=== PATIENT | female | born 1980 | race Two or more races ===

== ENCOUNTER 2016-05-27 01:21 | Emergency (ER) | payer OTHER ==
[2016-05-27] MEDS ORDERED: OXYCODONE-ACETAMINOPHEN 5-325 MG TABLET PO ONE (02:28)
[2016-05-27] MEDS ORDERED: PROMETHAZINE HCL 25 MG TABLET PO ONE (02:28)
[2016-05-27 02:50] LABS: ABSOLUTE BASOPHILS # (AUTO) 0.1 10^3/uL (0.0-0.2); ABSOLUTE EOSINOPHILS # (AUTO) 0.1 10^3/uL (0.0-0.6); ABSOLUTE LYMPHOCYTES (AUTO) 2.7 10^3/uL (0.5-4.7); ABSOLUTE MONOCYTES (AUTO) 0.5 10^3/uL (0.1-1.4); BASOPHILS % (AUTO) 0.6 % (0-2); EOSINOPHILS % (AUTO) 1.6 % (0-6); HEMATOCRIT 36.1 % (36.0-47.0); HEMOGLOBIN 11.7 g/dL (12.0-15.5); LYMPHOCYTES % (AUTO) 28.5 % (13-45); MEAN CORPUSCULAR HEMOGLOBIN 28.9 pg (27.0-33.4); MEAN CORPUSCULAR HGB CONC 32.5 g/dL (32.0-36.0); MEAN CORPUSCULAR VOLUME 89 fl (80-97); MONOCYTES % (AUTO) 5.8 % (3-13); RED BLOOD COUNT 4.05 10^6/uL (3.72-5.28); SEGMENTED NEUTROPHILS % (AUTO) 63.5 % (42-78); WHITE BLOOD COUNT 9.5 10^3/uL (4.0-10.5)
--- NOTE | 2016-05-27 02:50 | ER Document Report ---
ED GI/ - General Chief Complaint: Abdominal Pain Stated Complaint: ABDOMINAL PAIN Time seen by provider: 02:45 Notes: Patient is a 35-year-old female that comes emergency department for chief complaint of sudden sharp stabbing lower abdominal/pelvic pain that began this evening prior to arrival. Symptoms happened just after patient had a normal bowel movement. Patient states she feels very nauseated, she denies vomiting, fever, vaginal discharge, flank pain. at bedside. Patient has Mirena IUD. Patient also notes that recently she has been having frequent vaginal bleeding, none noted tonight. When asked patient does state she has had ovarian cysts previously. Patient also has history of fibromyalgia, TRAVEL OUTSIDE OF THE [place] IN LAST 30 DAYS: No - Related Data Allergies/Adverse Reactions: diphenhydramine HCl [From Benadryl] Adverse Reaction (Intermediate, Verified 02:51) "FEELING THAT COULD NOT MOVE" Past Medical History - General Information source: Patient - Social History Smoking Status: Never Smoker Frequency of alcohol use: None Drug Abuse: None Lives with: Family Family History: Reviewed & Not Pertinent Patient has suicidal ideation: No Patient has homicidal ideation: No - Past Medical History Cardiac Medical History: Denies: Hx Coronary Artery Disease, Hx Heart Attack, Hx Hypertension Pulmonary Medical History: Denies: Hx Asthma, Hx Bronchitis, Hx COPD, Hx Pneumonia Neurological Medical History: Denies: Hx Cerebrovascular Accident, Hx Seizures Renal/ Medical History: Denies: Hx Peritoneal Dialysis GI Medical History: Reports: Hx Gastroesophageal Reflux Disease, Hx Ulcer Musculoskeltal Medical History: Reports Hx Arthritis Psychiatric Medical History: Reports: Hx Anxiety, Hx Depression Past Surgical History: Reports: Hx Cholecystectomy, Hx Tonsillectomy. Denies: Hx Hysterectomy - Immunizations Immunizations up to date: Yes Hx Diphtheria, Pertussis, Tetanus Vaccination: Yes Review of Systems - Review of Systems Constitutional: No symptoms reported EENT: No symptoms reported Cardiovascular: No symptoms reported Respiratory: No symptoms reported Gastrointestinal: See HPI Genitourinary: See HPI Female Genitourinary: See HPI Musculoskeletal: No symptoms reported Skin: No symptoms reported Hematologic/Lymphatic: No symptoms reported Neurological/Psychological: No symptoms reported Physical Exam - Vital signs Vitals: Temp Pulse Resp BP Pulse Ox 98.0 F 105 H 20 122/74 98 05/27/16 01:28 05/27/16 01:28 05/27/16 01:28 05/27/16 01:28 05/27/16 01:28 Interpretation: Normal - General General appearance: Alert, Anxious In distress: Mild - Patient appears to be somewhat uncomfortable but is not into severe distress - HEENT Head: Normocephalic, Atraumatic Eyes: Normal Pupils: PERRL - Respiratory Respiratory status: No respiratory distress Chest status: Nontender Breath sounds: Normal Chest palpation: Normal - Cardiovascular Rhythm: Regular Heart sounds: Normal auscultation Murmur: No - Abdominal Inspection: Normal Distension: No distension Bowel sounds: Normal Tenderness: Tender - Tender in the Gen. lower abdomen in the suprapubic, left, and right lower abdomen. No guarding. Organomegaly: No organomegaly - Back Back: Normal, Nontender - Extremities General upper extremity: Normal inspection, Nontender, Normal color, Normal ROM , Normal temperature General lower extremity: Normal inspection, Nontender, Normal color, Normal ROM , Normal temperature, Normal weight bearing. 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 Ultrasound shows some pelvic fluid, left ovary is not visualized, uterus with irregular appearance. Based on patient's very sharp pain which has gradually subsided and patient's ultrasound with history of cysts, I suspect she ruptured an ovarian cyst. Patient symptom free after Percocet and Phenergan. Patient provided with a copy of her ultrasound, [place] with [facility], discussed return precautions including fever, returned severe pain, dizziness, etc. Patient states understanding and agreement. Hypotension at discharge, patient had just awakened, after this was performed she aroused easily, got up, normal skin coloration, well-appearing, alert, requesting to leave. - Vital Signs Vital signs: Temp Pulse Resp BP Pulse Ox 98.5 F 88 16 95/46 L 98 05/27/16 06:52 05/27/16 06:52 05/27/16 06:52 05/27/16 06:52 05/27/16 01:28 - Laboratory Result Diagrams: 05/27/16 02:38 05/27/16 02:38 Laboratory results interpreted by me: 05/27/16 02:38 Hgb 11.7 L Discharge - Discharge Clinical Impression: Lower abdominal pain Condition: Stable Disposition: HOME, SELF-CARE Additional Instructions: Your symptoms, examination, and workup suggests that you most likely popped an ovarian cyst. Please follow-up with [facility] with your ultrasound report and imaging for further evaluation and treatment. Return to the emergency department for any concerning symptoms. Prescriptions: Hydrocodone/Acetaminophen [[place] 5-325 Tablet] 1 - 2 each PO Q4H PRN #10 tablet PRN Reason: Forms: Treatment of Relative/Child
[2016-05-27 03:01] LABS: ALANINE AMINOTRANSFERASE 26 U/L (9-52); ALBUMIN 3.6 g/dL (3.5-5.0); ALKALINE PHOSPHATASE 71 U/L (38-126); ANION GAP 9 (5-19); ASPARTATE AMINO TRANSFERASE 18 U/L (14-36); BILIRUBIN,TOTAL 0.3 mg/dL (0.2-1.3); BLOOD UREA NITROGEN 13 mg/dL (7-20); CALCIUM 9.3 mg/dL (8.4-10.2); CARBON DIOXIDE 25 mmol/L (22-30); CHLORIDE 103 mmol/L (98-107); CREATININE RESULT 0.68 mg/dL (0.52-1.25); GLUCOSE 95 mg/dL (75-110); POTASSIUM 4.4 mmol/L (3.6-5.0); SODIUM 137.3 mmol/L (137-145); TOTAL PROTEIN 6.5 g/dL (6.3-8.2)
[2016-05-27] MEDS ORDERED: NORMAL SALINE 1000 ML 500 ML IV ONE (04:50)
[2016-05-27] MEDS ORDERED: HYDROCODONE/ACETAMINOPHEN 5-325 MG 6 TAB/DSPK PO PRN (05:10)
[2016-05-27 06:22] LABS: APPEARANCE,URINE CLEAR; BILIRUBIN,URINE NEGATIVE (NEGATIVE); GLUCOSE, URINE NEGATIVE (NEGATIVE); KETONES,URINE NEGATIVE (NEGATIVE); LEUKOCYTE ESTERASE,URINE NEGATIVE (NEGATIVE); NITRITE,URINE NEGATIVE (NEGATIVE); PROTEIN,URINE NEGATIVE (NEGATIVE); URINE SPECIFIC GRAVITY 1.023; UROBILINOGEN,URINE NEGATIVE mg/dL (<2.0)
[2016-05-27 06:54] VITALS: BP 95/46
== END 2016-05-27 06:54 | disposition home or self-care (01) ==
LOC: ER 01:21
DX: R10.2 Pelvic and perineal pain (principal); R11.0 Nausea; Z97.5 Presence of (intrauterine) contraceptive device; Z87.42 Personal history of other diseases of the female genital tract
CPT/HCPCS: 99284; 36415; 84703; 85025; 80053; 81001; 76830; 93976; J7030